=== PATIENT | female | born 1950 | race Caucasian/White ===

== ENCOUNTER 2021-11-13 20:28 | Emergency (ER) | payer OTHER ==
[~2021-11-13] VITALS: Ht 152.4 cm; Wt 89.8 kg
[2021-11-13 20:40] VITALS: BP 200/90
--- NOTE | 2021-11-13 20:50 | NUR ---
RECEIVED PT IN BED 11 AFTER PATIENT REFFERED FROM FOR C/O HIGH BS AND HTN. PER UC BS 393 AND BP: 218/108. PATIENT STATES PHARMACY WAS NOT WILLING TO GX RX INSULIN X 4 DAYS. PATIENT ASYMPTOMATIC. IS AWAKE AND ALERT, SKIN WARM AND DRY MEDHX: HTN, DM TYPE II RX: GLIPIZIDE, METFORMIN, LANTUS
--- NOTE | 2021-11-13 21:45 | NUR ---
AMBULATED TO BR FOR UA
[2021-11-13 21:48] LABS: BASOPHILS % (AUTO) 0.6 % (0.0-2.0); EOSINOPHILS # (AUTO) 0.3 K/uL (0-0.4); EOSINOPHILS % (AUTO) 4.6 % (0.0-4.0); HEMATOCRIT 35.1 % (36-48); HEMOGLOBIN 11.8 g/dL (12.0-16.0); LYMPHOCYTES # (AUTO) 1.9 K/uL (2.5-16.5); LYMPHOCYTES % (AUTO) 24.9 % (20.5-51.1); MEAN CORPUSCULAR HEMOGLOBIN 29 pg (27-31); MEAN CORPUSCULAR HGB CONC 34 g/dL (33-37); MEAN CORPUSCULAR VOLUME 85.6 fL (80-94); MONOCYTES # (AUTO) 0.5 K/uL (0.8-1.0); MONOCYTES % (AUTO) 6.9 % (1.7-9.3); NEUTROPHILS # (AUTO) 4.7 K/uL (1.8-7.7); PLATELET COUNT (AUTO) 421 K/uL (140-450); RED BLOOD CELL COUNT(AUTO) 4.11 MIL/uL (4.20-5.40); RED CELL DISTRIBUTION WIDTH 13.8 % (11.6-13.7); WHITE BLOOD COUNT (AUTO) 7.5 K/uL (4.8-10.8)
[2021-11-13 22:08] LABS: ALBUMIN 3.1 g/dL (3.4-5.0); ANION GAP 14.8 (8-16); CARBON DIOXIDE 23.5 mmol/L (21-32); CREATININE 1.6 mg/dL (0.6-1.3); POTASSIUM 4.3 mmol/L (3.5-5.1); TOTAL BILIRUBIN 0.2 mg/dL (0.0-1.0)
[2021-11-13 22:19] LABS: APPEARANCE,URINE CLEAR (CLEAR); BILIRUBIN,URINE NEGATIVE (NEGATIVE); BLOOD, URINE 1+ (NEGATIVE); COLOR,URINE YELLOW (YELLOW); LEUKOCYTE ESTERASE ,URINE NEGATIVE (NEGATIVE); NITRITE, URINE NEGATIVE (NEGATIVE); UGLUCOSE 3+ (NEGATIVE)
[2021-11-13 22:29] LABS: RBC,URINE 0-5 /HPF (0-5)
--- NOTE | 2021-11-13 22:38 | NUR ---
Dr. Murry examining patient.
[2021-11-13] MEDS ORDERED: NACL 0.9% 1,000 ML IV ONE (22:45)
[2021-11-13] MEDS ORDERED: INSULIN LANTUS 100 UNITS/ML 10 ML VIAL SUBQ ONE (22:45)
[2021-11-13] MEDS ORDERED: cefTRIAXone 1,000 MG VIAL ONE (22:57)
[2021-11-14] MEDS ORDERED: CEPH-588 PO (00:07)
[2021-11-14 00:20] VITALS: BP 200/90
--- NOTE | 2021-11-14 00:20 | NUR ---
Patient discharged with v/s stable. Written and verbal after care instructions given and explained. Patient verbalized understanding. Ambulatory with steady gait. All questions addressed prior to discharge. Advised to follow up with PMD.
== END 2021-11-14 00:20 | disposition home or self-care (01) ==
LOC: MED 20:28
DX: E11.65 Type 2 diabetes mellitus with hyperglycemia (principal); N39.0 Urinary tract infection, site not specified; E86.0 Dehydration; N17.9 Acute kidney failure, unspecified; I10 Essential (primary) hypertension; Z79.2 Long term (current) use of antibiotics
CPT/HCPCS: 36415; 80053; 81001; 83690; 85025; 87086; 96361; 96365; 96372; 99284; J0696; J1815; J7030